=== PATIENT | male | born 1945 | race African-American/Black ===

== ENCOUNTER 2017-04-26 22:43 | Emergency (ER) | payer OTHER ==
[~2017-04-26] VITALS: Ht 175.3 cm; Wt 84.1 kg
[~2017-04-26 22:43] MED LIST: AMLO-511 PO; AMLO2.5T29 PO; FLUO20CA30
[2017-04-27 01:00] VITALS: BP 144/80
== END 2017-04-27 01:37 | disposition left against medical advice (07) ==
LOC: EMS 22:45
DX: M50.923 Unspecified cervical disc disorder at C6-C7 level (principal); S13.9XXA Sprain of joints and ligaments of unspecified parts of neck, initial encounter; I10 Essential (primary) hypertension; W19.XXXA Unspecified fall, initial encounter; Y93.89 Activity, other specified; Y92.89 Other specified places as the place of occurrence of the external cause; Y99.8 Other external cause status
CPT/HCPCS: 99283

== ENCOUNTER 2017-10-06 12:14 | Emergency (ER) | payer MEDICARE, OTHER ==
[~2017-10-06] VITALS: Ht 175.3 cm; Wt 77.3 kg
[~2017-10-06 12:14] MED LIST changes: -AMLO2.5T29 PO
[2017-10-06 12:27] LABS: GLUCOSE,POINT OF CARE 106 MG/DL (70-110)
[2017-10-06 12:31] VITALS: BP 157/87
[2017-10-06] MEDS: KETOROLAC TROMETHAMINE 30 MG/ML VIAL IM ONE ×2 (13:43→13:49)
== END 2017-10-06 13:49 | disposition home or self-care (01) ==
LOC: EMS 12:15
DX: M54.2 Cervicalgia (principal); G89.29 Other chronic pain; I10 Essential (primary) hypertension
CPT/HCPCS: 82962; 99283; J1885

== ENCOUNTER 2018-02-20 12:12 | Emergency (ER) | payer MEDICARE, OTHER ==
[~2018-02-20] VITALS: Ht 177.8 cm; Wt 79.5 kg
[~2018-02-20 12:12] MED LIST changes: -FLUO20CA30
[2018-02-20] MEDS ORDERED: LIDOCAINE HCL/PF 1% 2 ML VIAL IM ONE (13:30)
[2018-02-20] MEDS ORDERED: CefTRIAXone SODIUM 1 GM/VIAL IM ONE (13:30)
[2018-02-20] MEDS ORDERED: AZITHROMYCIN 250 MG TABLET PO ONE (13:30)
[2018-02-20 13:50] LABS: APPEARANCE,URINE CLEAR (CLEAR); BILIRUBIN,URINE NEGATIVE (NEGATIVE); GLUCOSE, URINE (UA) NEGATIVE (NEGATIVE); KETONES,URINE NEGATIVE (NEGATIVE); LEUKOCYTE ESTERASE ,URINE NEGATIVE (NEGATIVE); NITRATE,URINE NEGATIVE (NEGATIVE); OCCULT BLOOD,URINE NEGATIVE (NEGATIVE); PH,URINE 6.5 (5.0-8.0); PROTEIN,URINE NEGATIVE (NEGATIVE); UROBILINOGEN,URINE 0.2 mg/dL (<=1.0)
[2018-02-20 14:43] VITALS: BP 152/73
== END 2018-02-20 14:54 | disposition home or self-care (01) ==
LOC: EMS 12:14
DX: N34.2 Other urethritis (principal); F32.9 Major depressive disorder, single episode, unspecified; I10 Essential (primary) hypertension; Z79.899 Other long term (current) drug therapy
CPT/HCPCS: 81003; 96372; 99283; J0696; J3490